=== PATIENT | male | born 1955 | race Hispanic/Latino ===

== ENCOUNTER → 2023-11-23 | Outpatient (CLI) | payer OTHER ==
[2023-11-23] MEDS: REGADENOSON 0.4 MG/5 ML PF SYG IVP ONE (11:25)
== END | disposition home or self-care (01) ==
LOC: SHCH 09:01
PROVIDERS: ATTEND Internal Medicine Cardiovascular Disease
DX: R07.9 Chest pain, unspecified (principal)
CPT/HCPCS: 78452; 93017; J2785; A9500 ×2

== ENCOUNTER 2024-01-02 07:41 | Day surgery (SDC) | payer OTHER ==
[2023-12-31 10:23] VITALS: BP 135/63; PULSE 65; RESP 17; TEMP 98.1
[2023-12-31 10:30] LABS: BASOPHILS # (AUTO) 0.04 K/uL (0.00-0.20); BASOPHILS % (AUTO) 0.5 % (0.0-5.0); EOSINOPHILS # (AUTO) 0.26 K/uL (0.00-0.70); EOSINOPHILS % (AUTO) 3.3 % (0.0-8.0); HEMATOCRIT 44.4 % (42-54); IMMATURE GRANULOCYTE ABSOLUTE 0.03 K/uL (0-1); LYMPHOCYTES # (AUTO) 1.9 K/uL (1.0-4.8); LYMPHOCYTES % (AUTO) 23.2 % (21.0-51.0); MEAN CORPUSCULAR HEMOGLOBIN 30.4 pg (27.0-33.0); MEAN CORPUSCULAR HGB CONC 32.9 g/dL (32.0-36.0); MEAN CORPUSCULAR VOLUME 92.5 fL (79-99); MONOCYTES # (AUTO) 0.5 K/uL (0.1-1.0); MONOCYTES % (AUTO) 6.3 % (3.0-13.0); NEUTROPHILS # (AUTO) 5.3 K/uL (1.8-7.7); NEUTROPHILS % (AUTO) 66.3 % (40.0-77.0); PLATELET COUNT (AUTO) 156 K/uL (130-400); RED CELL DISTRIBUTION WIDTH 13.5 % (11.0-15.5)
[2023-12-31 10:38] LABS: POTASSIUM 4.3 mmol/L (3.5-5.1)
[2023-12-31 10:45] LABS: INR 1.02 (0.85-1.15)
[2023-12-31 10:46] LABS: PARTIAL THROMBOPLASTIN TIME 31.5 SEC (26.3-35.5)
[2023-12-31 11:42] LABS: B-TYPE NATRIURETIC PEPTIDE 23 pg/mL (0-100)
[~2024-01-02] VITALS: Ht 172.7 cm; Wt 100.2 kg
[2024-01-02] VITALS (14 sets, daily range): BP systolic 90–149; BP diastolic 31–80; PULSE 61–75; RESP 10–21; TEMP 97.1–98
[~2024-01-02 07:41] MED LIST: AEC81 PO; AMLO-257 PO; ATOR40TA69 PO; EMPA25TA PO; LINA5TAB PO; METO-391 PO; VALS160T29 PO
[2024-01-02] MEDS: 0.9%NACL 1000ML 1,000 ML IV ONE (09:13)
[2024-01-02] MEDS ORDERED: HEParin 10,000 UNIT/10ML (1,000 UNIT/ML) VIAL ONE (09:43)
[2024-01-02] MEDS ORDERED: LIDOCAINE HCL 400MG/20ML VIAL ONE (09:43)
[2024-01-02] MEDS ORDERED: NITROGLYCERIN 50MG VIAL ONE (09:44)
[2024-01-02] MEDS ORDERED: niCARDIpine 25MG INJ IV ONE (09:44)
[2024-01-02] MEDS ORDERED: HEParin-NS 1,000 UNIT/500 ML 1,000 ML IV ONE (09:44)
[2024-01-02] MEDS ORDERED: IOHEXOL 350 MG/ML 100ML INFUS..BTL IV ONE (09:45)
[2024-01-02] MEDS ORDERED: MIDAZOLAM HCL 1 MG/ML 2ML VIAL ONE (09:56)
[2024-01-02] MEDS ORDERED: FENTanyl CITRate PF 50 MCG/1 ML 2ML VIAL ONE (09:56)
[2024-01-02] MEDS ORDERED: ATROPINE 1MG SYG IVP ONE (10:06)
[2024-01-02] MEDS ORDERED: DEXTROSE 50%-WATER 50 ML DISP.SYRIN IV PRN (11:30)
[2024-01-02] MEDS ORDERED: GLUCAGON 1MG KIT 1 MG ML IM PRN (11:30)
== END 2024-01-02 16:40 | disposition home or self-care (01) ==
LOC: DAH 07:41
PROVIDERS: ATTEND Internal Medicine Cardiovascular Disease
DX: R07.9 Chest pain, unspecified (principal); I25.118 Atherosclerotic heart disease of native coronary artery with other forms of angina pectoris; R93.1 Abnormal findings on diagnostic imaging of heart and coronary circulation; I10 Essential (primary) hypertension; E78.5 Hyperlipidemia, unspecified; E11.9 Type 2 diabetes mellitus without complications; Z79.899 Other long term (current) drug therapy
CPT/HCPCS: 80048; 83880; 85025; 85610; 85730; 36415; 71045; 93005; 93458; 82948 ×2; C1769; C1894; A4649; Q9965 ×2; J3010; J3490 ×3; J7030; J1644 ×2; J2250; Q9967; A4215; A6402; A4222; A6260; A4221; A4663; A4216; A4606; A4223 ×3; 99156; 99157; J0461